=== PATIENT | male | born 1975 | race Two or more races ===

== ENCOUNTER 2017-10-25 05:07 | Emergency (ER) | payer BC ==
--- NOTE | 2017-10-25 05:10 | ER Report ---
History and Physical Time Seen By MD: 05:10 HPI/ROS CHIEF COMPLAINT: Right arm laceration HISTORY OF PRESENT ILLNESS: 42-year-old male presents ambulatory to the ER complaining of right arm laceration. Apparently he fell through a glass pane window. He has 3 large lacerations that extend into the subcutaneous tissue in the upper right forearm on the volar surface. Patient thinks his last tetanus shots greater than 10 years. Patient amidst alcohol ingestion. Allergies: Coded Allergies: No Known Drug Allergies (Unverified , 10/25/17) Home Meds No Active Prescriptions or Reported Meds Reviewed Nurses Notes: Yes Old Medical Records Reviewed: Yes Constitutional Vital Sign - Last 24 Hours 10/25/17 10/25/17 10/25/17 10/25/17 05:12 05:13 05:22 05:37 Temp 97.9 Pulse 142 Resp 16 B/P (MAP) 135/95 (108) 135/95 Pulse Ox 90 91 89 O2 Delivery Room Air Physical Exam General Appearance: The patient is alert, has no immediate need for airway protection and no current signs of toxicity. Palpation of the head and neck reveal no tenderness or trauma Eyes: Pupils equal and round no injection. Respiratory: Chest is non tender, lungs are clear to auscultation. No chest wall tenderness Cardiac: regular rate and rhythm Gastrointestinal: Abdomen is soft and non tender, no masses, bowel sounds normal. Musculoskeletal: Neck: Neck is supple and non tender. Extremities have full range of motion and are non tender. Examination of the right arm reveals large lacerations transversely across the upper forearm on the volar surface extending deep into the muscular level. Distal neurovascular functions intact in the right hand. There is a strong radial pulse. Skin: No rashes or lesions. DIFFERENTIAL DIAGNOSIS: After history and physical exam differential diagnosis was considered for right arm laceration, muscle laceration, tendon laceration, nerve laceration, foreign body Medical Decision Making ED Course/Re-evaluation ED Course Patient was admitted to an examination room. H&P was done. The dental diagnoses was considered. Patient is unsure of his last tetanus booster. A tetanus booster was ordered, but he refused. Diagnostic x-rays of the forearm to look for glass foreign bodies were ordered and the patient refused. Patient is intoxicated and uncooperative. We'll not lie down for repair of his lacerations. His arm was placed on a treatment table that arm level. His wound was infiltrated with Marcaine 0.5% with epinephrine. The wound was copiously irrigated and scrubbed. Procedure: Laceration repair. Verbal consent was obtained from the patient. The 8.0 cm laceration on the right volar forearm was anesthetized in the usual fashion. The wound was scrubbed, draped and explored to its base with a gloved finger. There was some superficial laceration of the muscle body No tendon injury was identified. The wound was repaired with 3-0 Prolene 10 sutures. The wound repair was simple. The procedure was performed by myself. Procedure: Laceration repair. [Verbal consent was obtained from the patient.] The 4.5 cm laceration on the right volar forearm was anesthetized in the usual fashion. The wound was scrubbed, draped and explored to its base with a gloved finger. There was some penetration to the muscle bundles No tendon injury was identified. The wound was repaired with 3-0 Prolene 4 sutures. The wound repair was simple. The procedure was performed by myself. Wound care was discussed, suture removal will be in 14 days Decision to Disposition Date: Oct 25, 2017 Decision to Disposition Time: 06:08 Depart Departure Latest Vital Signs Vital Signs Date Time Temp Pulse Resp B/P (MAP) Pulse Ox O2 Delivery O2 Flow Rate FiO2 10/25/17 05:37 89 10/25/17 05:13 97.9 142 16 135/95 Room Air Impression: Primary Impression: Laceration of arm, right, multiple sites Condition: Improved Disposition: HOME OR SELF-CARE New Scripts No Active Prescriptions or Reported Meds Patient Instructions: Laceration (ED) Additional Instructions: Perform daily wound care cleanse the area with a mild soap such as baby shampoo and cover with a gauze dressing Have your stitches removed in 2 weeks Problem Qualifiers Primary Impression: Laceration of arm, right, multiple sites Encounter type: initial encounter Qualified Codes: S41.111A - Laceration without foreign body of right upper arm, initial encounter GABY FREITAS DO Oct 25, 2017 05:10
[2017-10-25 05:13] VITALS: BP 135/95
[2017-10-25] MEDS: DIPHTH/TETANUS/ACEL. PERTUSSIS IM ONLY ONE ×2 (05:20→05:27)
== END 2017-10-25 06:19 | disposition home or self-care (01) ==
LOC: ER 05:47
DX: S51.811A Laceration without foreign body of right forearm, initial encounter (principal)
CPT/HCPCS: 90715; 99283